=== PATIENT | male | born 1960 | race Caucasian/White ===

== ENCOUNTER 2020-06-08 09:25 | Day surgery (SDC) | payer OTHER, SELFPAY ==
[~2020-06-08] VITALS: Ht 182.9 cm; Wt 133.8 kg
[2020-06-08] MEDS ORDERED: fentaNYL citrate 0.05 MG/ML VIAL ONE (12:25)
[2020-06-08] MEDS ORDERED: LIDOCAINE 2% 100 MG/5 ML UJET TP ONE (12:25)
== END 2020-06-08 13:40 | disposition home or self-care (01) ==
LOC: MDS 09:25 → MFCC 11:37 → MDS 13:40
PROVIDERS: ATTEND Internal Medicine Gastroenterology
DX: Z12.11 Encounter for screening for malignant neoplasm of colon (principal); D12.3 Benign neoplasm of transverse colon; Z20.828 Contact with and (suspected) exposure to other viral communicable diseases; K76.0 Fatty (change of) liver, not elsewhere classified; E66.01 Morbid (severe) obesity due to excess calories; Z68.41 Body mass index [BMI] 40.0-44.9, adult; I10 Essential (primary) hypertension; Z88.0 Allergy status to penicillin; Z79.899 Other long term (current) drug therapy
CPT/HCPCS: 45385; J3010; U0003